=== PATIENT | female | born 1980 | race Caucasian/White ===

== ENCOUNTER 2016-11-04 10:17 | Emergency (ER) | payer OTHER ==
[~2016-11-04] VITALS: Ht 157.5 cm; Wt 59.0 kg
--- NOTE | 2016-11-04 10:22 | PHYS DOC ---
General Chief Complaint: hematuria Stated Complaint: blood in urine Time Seen by MD: 10:21 Source: patient Exam Limitations: no limitations Problems: History of Present Illness Initial Comments Patient is a 35-year-old female sent to the emergency department from a local urgent care for flank pain and hematuria. Patient states that 2 days ago (Thursday) she developed sudden onset moderate to severe left flank pain. She states it's a sharp/crampy pain 10 out of 10 at its worst and resolved completely at times. Symptoms wax and wane, patient has also had episodes of gross hematuria at home. She follows at [facility] and no appointments are available until next week so she was referred to a local urgent care. She underwent urine studies yesterday at the urgent care, it was requested that she return to that facility today for blood work. She says that while she was at the office this morning she developed left flank pain again and they referred her to this facility for further evaluation. Patient denies fever chills sweats or myalgias no nausea vomiting or diarrhea, patient has had normal bowel movements each of the last 2 days. She gave urine specimen here in the department with no gross hematuria she says that's the best her urine has looked for the past 2 days. She's had no dysuria she's had some hesitancy no nocturia or suprapubic pain. No unexplained weight loss or night sweats. Patient denies she is currently taking vitamins and seeing fertility specialist as she wants to get . ED vitals are stable Timing/Duration: changing over time, intermittent (2 days) Severity: severe Modifying Factors: improves with other Associated Symptoms: other Allergies: Coded Allergies: codeine (Verified Allergy, Intermediate, 11/04/16) hyperactive Past Medical History Medical History: no pertinent history (pt is seeing fertility specialist wanting to be ) Surgical History: noncontributory Social History Smoker: non-smoker Alcohol: none Drugs: none Review of Systems Constitutional: denies chills, denies diaphoresis, denies fever Respiratory: denies cough, denies shortness of breath Cardiovascular: denies chest pain, denies palpitations Gastrointestinal: see HPI, abdominal pain, denies constipation, denies diarrhea , denies nausea, denies vomiting Genitourinary: see HPI Musculoskeletal: see HPI, denies joint swelling, denies neck pain Psychiatric/Neurological: denies headache, denies numbness, denies paresthesia Hematologic/Lymphatic: denies blood clots, denies easy bleeding, denies easy bruising Physical Exam General Appearance: WD/WN, no apparent distress Eyes: bilateral eye normal inspection, bilateral eye PERRL, bilateral eye EOMI Ear, Nose, Throat: hearing grossly normal, normal ENT inspection Neck: non-tender, supple Respiratory: normal breath sounds, no respiratory distress Cardiovascular: normal peripheral pulses, regular rate, rhythm Gastrointestinal: normal bowel sounds, non tender, soft, no organomegaly Back: no CVA tenderness, no vertebral tenderness Extremities: non-tender, normal inspection Neurologic/Psychiatric: wool puller II-XII nml as tested, no motor/sensory deficits, alert, normal mood/affect, oriented x 3 Skin: normal color, warm/dry Orders, Labs, Meds PATIENT: ADELIA SHORE ACCOUNT: [id number] : 1980 LOCATION: ER AGE: 35 SEX: F EXAM STATUS: REG ER ORD. PHYSICIAN: ALEX SORENSON DO REASON: flank pain, gross hematuria PROCEDURE: CT ABDOMEN PELVIS WO CONTRAST CT abdomen and pelvis without contrast 11/04/2016 Clinical indication: Flank pain, gross hematuria. Comparison: None. Technique: CT helical acquisition of the abdomen and pelvis was obtained without intravenous contrast according to standard protocol. Coronal and sagittal reformations were obtained. PQRS Compliance Statement: One or more of the following individualized dose reduction techniques were utilized for this examination: 1. Automated exposure control 2. Adjustment of the mA and/or kV according to patient size 3. Use of iterative reconstruction technique Findings: Abdomen and pelvis: Heart size and visualized lung bases are within normal limits. Evaluation of the solid abdominal pelvic viscera, lymphadenopathy and vasculature is limited in absence of intravenous contrast. Unenhanced contours of the liver, gallbladder, spleen, adrenal glands and pancreas are grossly unremarkable. No urolithiasis or hydroureteronephrosis. Mildly distended urinary bladder demonstrates mild circumferential urinary bladder wall thickening. No bowel obstruction and. Appendix is not clearly identified, however no secondary findings of appendicitis. No pneumoperitoneum. No portal venous gas. Uterus is present. There is trace pelvic free fluid. No destructive osseous lesions. Impression: 1. No urolithiasis or hydroureteronephrosis. 2. Appendix is not clearly identified, however no secondary findings to suggest appendicitis on noncontrast evaluation. If further evaluation is clinically indicated, repeat examination with contrast could be obtained. 3. Mild circumferential urinary bladder wall thickening which may be due to incomplete distention, however cystitis cannot be excluded. Correlation with urinalysis is recommended 4. Trace pelvic free fluid, likely physiologic. DICTATED AND SIGNED BY: PAPITO CALHOUN MD DATE: 11/04/16 3785 CC: ANGELA CRAVEN MD; ALEX SORENSON DO ~ Labs unremarkable, urinalysis with 11-20 red blood cells and positive blood Patient rechecked and I discussed results. She states she's feeling somewhat better. No cause for the patient's symptoms identified in the emergency department. With stable vital signs and hemoglobin and mild hematuria no further emergent workup is necessary. I discussed outpatient follow-up and neck neurology referral. I discussed empiric antibiotic treatment and pain medications. I discussed close follow-up with [facility] (patient was advised to follow-up after lunch today) and the patient was given copies of all of her results from today's visit. She expressed agreement and understanding of the treatment plan and states she will follow-up at [facility] this afternoon. She left with her significant other and son in good condition. Departure Time of Disposition: 12:06 Disposition: 01 HOME, SELF-CARE Diagnosis: hematuria, flank pain Condition: GOOD Patient Instructions: Hematuria, Adult Additional Instructions: As discussed you will need to follow-up with a behavioral health care manager. Drink plenty of fluids to avoid dehydration, Gatorade or water. Biid-cys-vywgeds Tylenol as needed. Prescription: Bactrim DS, [place] 5 mg quantity 10 Take medications with food to avoid nausea and vomiting. You will need to follow-up with a behavioral health care manager. requires referrals from your PC[facility]. Copies of your labs and CT report have been given to you. Take them to [facility] today for referral to nephrology [facility]. Return to ED with new or changing symptoms. ALEX SORENSON DO Nov 04, 2016 10:22
[2016-11-04 11:00] LABS: BASO % 1 % (0-3); EOS % 1 % (0-3); HEMATOCRIT 42.5 % (36.0-47.0); HEMOGLOBIN 14.4 g/dL (12.0-15.5); LYMPH # 1.9 x10^3/uL (1.0-4.8); LYMPH % 34 % (24-48); MEAN CORPUSCULAR HEMOGLOBIN 32 pg (25-35); MEAN CORPUSCULAR HGB CONC 34 g/dL (31-37); MEAN CORPUSCULAR VOLUME 93 fL (79-100); MONO # 0.4 x10^3/uL (0.0-1.1); MONO % 7 % (0-9); NEUT # 3.3 x10^3uL (1.8-7.7); NEUT % 58 % (31-73); PLATELET COUNT 287 x10^3/uL (140-400); RED BLOOD COUNT 4.56 x10^6/uL (3.50-5.40); RED CELL DISTRIBUTION WIDTH 13.1 % (11.5-14.5); WHITE BLOOD COUNT 5.7 x10^3/uL (4.0-11.0)
[2016-11-04] MEDS: fentaNYL PF 100 MCG/2 ML VIAL IV PRN ×2 (11:00→11:30)
[2016-11-04 11:04] LABS: CREATININE 0.8 mg/dL (0.6-1.0); GFR 82.6; POTASSIUM 4.4 mmol/L (3.5-5.1)
[2016-11-04 11:09] LABS: BILIRUBIN,URINE NEG (NEG); CLARITY,URINE CLEAR; COLOR,URINE YELLOW; GLUCOSE,URINE NEG (NEG); UROBILINOGEN,URINE 0.2 mg/dL (0.2 mg/dL)
[2016-11-04 11:10] LABS: BACTERIA,URINE FEW /HPF (0-FEW); NITRITE,URINE NEG (NEG); SQUAMOUS EPITHELIAL CELL,UR FEW /LPF; WBC,URINE RARE /HPF (0-4)
[2016-11-04] MEDS ORDERED: ONDANSETRON PF 4 MG/2 ML VIAL. IV ONE (11:10)
[2016-11-04] MEDS ORDERED: KETOROLAC 30 MG/ML VIAL. IV ONE (11:10)
[2016-11-04] MEDS ORDERED: cefTRIAXone SODIUM 1 GM VIAL IV ONE (11:13)
[2016-11-04] MEDS ORDERED: IV NORMAL SALINE 50ML 50 ML ONE (11:13)
--- NOTE | 2016-11-04 11:27 | RAD ---
CT abdomen and pelvis without contrast 11/04/2016 Clinical indication: Flank pain, gross hematuria. Comparison: None. Technique: CT helical acquisition of the abdomen and pelvis was obtained without intravenous contrast according to standard protocol. Coronal and sagittal reformations were obtained. PQRS Compliance Statement: One or more of the following individualized dose reduction techniques were utilized for this examination: 1. Automated exposure control 2. Adjustment of the mA and/or kV according to patient size 3. Use of iterative reconstruction technique Findings: Abdomen and pelvis: Heart size and visualized lung bases are within normal limits. Evaluation of the solid abdominal pelvic viscera, lymphadenopathy and vasculature is limited in absence of intravenous contrast. Unenhanced contours of the liver, gallbladder, spleen, adrenal glands and pancreas are grossly unremarkable. No urolithiasis or hydroureteronephrosis. Mildly distended urinary bladder demonstrates mild circumferential urinary bladder wall thickening. No bowel obstruction and. Appendix is not clearly identified, however no secondary findings of appendicitis. No pneumoperitoneum. No portal venous gas. Uterus is present. There is trace pelvic free fluid. No destructive osseous lesions. Impression: 1. No urolithiasis or hydroureteronephrosis. 2. Appendix is not clearly identified, however no secondary findings to suggest appendicitis on noncontrast evaluation. If further evaluation is clinically indicated, repeat examination with contrast could be obtained. 3. Mild circumferential urinary bladder wall thickening which may be due to incomplete distention, however cystitis cannot be excluded. Correlation with urinalysis is recommended 4. Trace pelvic free fluid, likely physiologic.
[2016-11-04 12:00] VITALS: BP 130/66
[2016-11-04] MEDS ORDERED: SULF1TAB24 PO (12:10)
[2016-11-04] MEDS ORDERED: HYDR-971 PO (12:10)
[2016-11-04] MEDS ORDERED: SMZ/TMP 800/160MG TABLET. PO ONE (12:30)
== END 2016-11-04 12:30 | disposition home or self-care (01) ==
LOC: ER 10:17
DX: R10.9 Unspecified abdominal pain (principal); R31.9 Hematuria, unspecified; Z88.5 Allergy status to narcotic agent
CPT/HCPCS: 36415; 74176; 80048; 81001; 85027; 96365; 96375; 99285; J0696; J1885; J3010